=== PATIENT | male | born 1975 | race Caucasian/White ===

== ENCOUNTER 2017-10-10 12:42 | Inpatient (IN) | payer MEDICAID ==
[~2017-10-10] VITALS: Ht 172.7 cm; Wt 71.4 kg
[2017-10-10 12:46] VITALS: Ht 172.7 cm; Wt 71.4 kg
[2017-10-10 14:03] LABS: PLATELET COUNT 282 x10^3mcL (130-400); RED CELL DISTRIBUTION WIDTH 13.4 % (11.5-14.5)
[2017-10-10 14:11] LABS: CALCIUM 8.8 mg/dL (8.5-10.1); CARBON DIOXIDE 19.7 mmol/L (21-32); CHLORIDE SERUM 99 mmol/L (98-107); CREATININE SERUM 0.7 mg/dL (0.7-1.3); GFR1 > 60 mL/min; GLUCOSE SERUM 249 mg/dL (74-106); POTASSIUM SERUM 3.6 mmol/L (3.5-5.1); SODIUM SERUM 134 mmol/L (136-145)
[2017-10-10 14:31] LABS: BAND NEUTROPHIL 2 % (0-10); BASOPHIL 0 % (0-2); MONOCYTE 7 % (0-7); SEGMENTED NEUTROPHILS 77 % (37-75)
[2017-10-10 14:33] LABS: rbc morphology (normal/abnorm) NORMAL (NORMAL)
[2017-10-10 14:48] LABS: UA SPECIFIC GRAVITY >=1.030 (1.005-1.035); microscopic required? YES; urine erythrocyte TRACE (NEGATIVE)
[2017-10-10 16:09] LABS: MAGNESIUM 2.1 mg/dL (1.8-2.4); PHOSPHOROUS 3.6 mg/dL (2.5-4.9)
[2017-10-10 16:12] VITALS: BP 129/83
[2017-10-10 16:15] LABS: CHOLESTEROL/HDL RATIO 4.5
[2017-10-10 16:16] LABS: T3 TOTAL 0.85 ng/mL
[2017-10-10 16:20] LABS: FREE T4 1.32 ng/dL (0.76-1.46); FREE THYROXINE INDEX 3.6 ug/dL (1.4-4.5); T4(THYROXINE) 10.1 ug/dL (4.7-13.3)
[2017-10-10 20:44] VITALS: BP 118/77
[2017-10-11 05:36] VITALS: BP 115/76
[2017-10-11 06:32] LABS: BASOPHIL % 0.2 % (0-2); CALCIUM 8.4 mg/dL (8.5-10.1); CARBON DIOXIDE 20.1 mmol/L (21-32); CHLORIDE SERUM 105 mmol/L (98-107); CREATININE SERUM 0.6 mg/dL (0.7-1.3); GFR1 > 60 mL/min; GLUCOSE SERUM 179 mg/dL (74-106); PLATELET COUNT 317 x10^3mcL (130-400); POTASSIUM SERUM 4.1 mmol/L (3.5-5.1); RED CELL DISTRIBUTION WIDTH 13.3 % (11.5-14.5); SODIUM SERUM 140 mmol/L (136-145)
[2017-10-11 10:00] VITALS: BP 115/75
[2017-10-11 18:12] VITALS: BP 130/74
[2017-10-11 21:07] VITALS: BP 118/65
[2017-10-12 06:12] VITALS: BP 122/77
[2017-10-12 06:40] LABS: BASOPHIL % 0.3 % (0-2); PLATELET COUNT 341 x10^3mcL (130-400); RED CELL DISTRIBUTION WIDTH 13.7 % (11.5-14.5)
[2017-10-12 07:24] LABS: CALCIUM 8.9 mg/dL (8.5-10.1); CARBON DIOXIDE 24.3 mmol/L (21-32); CHLORIDE SERUM 103 mmol/L (98-107); CREATININE SERUM 0.7 mg/dL (0.7-1.3); GFR1 > 60 mL/min; GLUCOSE SERUM 177 mg/dL (74-106); POTASSIUM SERUM 3.7 mmol/L (3.5-5.1); SODIUM SERUM 139 mmol/L (136-145)
[2017-10-12 09:16] VITALS: BP 125/79
[2017-10-12 17:18] VITALS: BP 129/79
[2017-10-12 20:47] VITALS: BP 123/80
[2017-10-13 05:49] LABS: BASOPHIL % 0.3 % (0-2); PLATELET COUNT 349 x10^3mcL (130-400); RED CELL DISTRIBUTION WIDTH 13.7 % (11.5-14.5)
[2017-10-13 05:50] VITALS: BP 107/66
[2017-10-13 06:19] LABS: ALKALINE PHOSPHATASE 91 U/L (46-116); ALT/SGPT 9 U/L (16-63); AST/SGOT 18 U/L (15-37); BILIRUBIN TOTAL 0.47 mg/dL (0.20-1.00); CALCIUM 8.6 mg/dL (8.5-10.1); CARBON DIOXIDE 23.8 mmol/L (21-32); CHLORIDE SERUM 102 mmol/L (98-107); CREATININE SERUM 0.6 mg/dL (0.7-1.3); GFR1 > 60 mL/min; GLUCOSE SERUM 169 mg/dL (74-106); POTASSIUM SERUM 3.7 mmol/L (3.5-5.1); SODIUM SERUM 136 mmol/L (136-145); TOTAL PROTEIN, SERUM 7.2 g/dL (6.4-8.2)
[2017-10-13 06:34] LABS: ALBUMIN 2.7 g/dL (3.4-5.0)
[2017-10-13 09:07] VITALS: BP 120/78
[2017-10-13 16:53] VITALS: BP 117/77
[2017-10-13 20:38] VITALS: BP 127/79
[2017-10-14 05:44] VITALS: BP 100/63
[2017-10-14 06:58] LABS: BASOPHIL % 0.8 % (0-2); PLATELET COUNT 363 x10^3mcL (130-400); RED CELL DISTRIBUTION WIDTH 13.6 % (11.5-14.5)
[2017-10-14 07:21] LABS: CALCIUM 8.7 mg/dL (8.5-10.1); CARBON DIOXIDE 26.4 mmol/L (21-32); CHLORIDE SERUM 102 mmol/L (98-107); CREATININE SERUM 0.7 mg/dL (0.7-1.3); GFR1 > 60 mL/min; GLUCOSE SERUM 189 mg/dL (74-106); POTASSIUM SERUM 3.5 mmol/L (3.5-5.1); SODIUM SERUM 139 mmol/L (136-145)
[2017-10-14 09:49] VITALS: BP 96/64
[2017-10-14] MEDS ORDERED: METFORMIN HYDR500 M1 PO (15:35)
[2017-10-14] MEDS ORDERED: CLINDAMYCIN HC300 MG PO (15:44)
[2017-10-14 15:52] VITALS: BP 96/64
== END 2017-10-14 17:20 | disposition home or self-care (01) | DRG 710 ==
LOC: ED 12:42 → MU 14:43
PROVIDERS: Emergency Medicine; Internal Medicine; Surgery
PROC: 0J9B0ZZ Drainage of Perineum Subcutaneous Tissue and Fascia, Open Approach (ICD-10-PCS; principal; 2017-10-12 10:00)
DX: A41.9 Sepsis, unspecified organism (principal); N17.0 Acute kidney failure with tubular necrosis; E43 Unspecified severe protein-calorie malnutrition; L02.215 Cutaneous abscess of perineum; E11.65 Type 2 diabetes mellitus with hyperglycemia; E87.1 Hypo-osmolality and hyponatremia; D68.69 Other thrombophilia; N49.2 Inflammatory disorders of scrotum; R80.9 Proteinuria, unspecified; E78.5 Hyperlipidemia, unspecified; Z68.27 Body mass index [BMI] 27.0-27.9, adult
CPT/HCPCS: 84439; 94150; J1885; J2001; J2175; J2250; J2543; J2704; J3010; J3490; J7030; J7120; Q0092